=== PATIENT | female | born 1965 | race Caucasian/White ===

== ENCOUNTER 2017-07-14 08:20 | Emergency (ER) | payer SELFPAY ==
[~2017-07-14] VITALS: Ht 144.8 cm; Wt 66.4 kg
[~2017-07-14 08:20] MED LIST: SIMV-259 PO
[2017-07-14] MEDS ORDERED: IBUPROFEN 600 MG TABLET PO ONE (11:45)
[2017-07-14 12:01] VITALS: BP 142/77
== END 2017-07-14 12:05 | disposition home or self-care (01) ==
LOC: EMS 08:21
DX: M25.512 Pain in left shoulder (principal); E78.00 Pure hypercholesterolemia, unspecified
CPT/HCPCS: 99284